=== PATIENT | female | born 1985 | race Caucasian/White ===

== ENCOUNTER 2021-05-12 11:26 | Emergency (ER) | payer OTHER, SELFPAY ==
[2021-05-12 11:34] VITALS: BP 172/89; PULSE 94; RESP 16; TEMP 36.1; O2SAT 100
--- NOTE | 2021-05-12 11:56 | ED.URI ---
HPI - URI/Sore Throat General Chief Complaint: Upper Respiratory Infection Stated Complaint: sinus issues Time Seen by Provider: 05/12/21 11:47 Source: patient and RN notes reviewed Mode of arrival: ambulatory Limitations: no limitations History of Present Illness HPI Narrative: Patient presents today with a 3-day history of congestion, rhinorrhea, left ear pain. She does report a 1 month history of increased allergy symptoms to include cough with mild shortness of breath. Denies fever. History of asthma for which she has been using her DuoNeb treatments with some relief. She has also recently been using Benadryl, sinus medication, and Mucinex with some relief as well. MD elicited complaint: cough, rhinorrhea and nasal congestion Related Data Home Medications Medication Instructions Recorded Confirmed buspirone mg 09/04/19 01/09/21 citalopram mg 09/04/19 01/09/21 prazosin 09/04/19 01/09/21 famotidine 40 mg tablet 40 mg PO DAILY 01/07/20 01/09/21 Allergies Allergy/AdvReac Type Severity Reaction Status Date / Time latex Allergy Mild Unknown Verified 01/09/21 14:12 Penicillins Allergy Mild Unknown Verified 01/09/21 14:12 egg Allergy Unknown Unknown Verified 01/09/21 14:12 peanut Allergy Unknown Unknown Verified 01/09/21 14:12 tetanus immune globulin Allergy Unknown Unknown Verified 01/09/21 14:12 tuberculin, purified protein Allergy Unknown Unknown Verified 01/09/21 14:12 deriva WALNUTS Allergy Unknown Unknown Uncoded 01/09/21 14:12 Review of Systems Review of Systems: CONSTITUTIONAL: Denies body aches, fever, chills, or sweats. EYES: Denies visual changes, redness, or discharge. ENT: Denies sore throat, or otalgia.+ Rhinorrhea, left ear pain, nasal congestion CARDIOVASCULAR: Denies chest pain, palpitations, or edema. RESPIRATORY: + Cough, shortness of breath GASTROINTESTINAL: Denies abdominal pain, nausea, vomiting, or diarrhea. GENITOURINARY: Denies dysuria or hematuria. SKIN: Denies rash, itching, or wounds. MUSCULOSKELETAL: Denies back pain, joint pain, or myalgia. NEUROLOGIC: Denies headache, numbness, tingling, or weakness. PSYCH: Denies depression or anxiety. PMFSH Past Medical History Medical History Asthma Family History Family History Father Asthma Family history of lung cancer Mother Asthma Sibling Asthma Social History Social History Smoking status: Former smoker Smoking end date: 09/08/07 Alcohol intake: current Comments At time of signature, I have reviewed and agree with nursing past medical, surgical, social and family history unless otherwise noted. Please see nursing chart for further information. There is no relevant family history pertinent to the presenting complaint Exam Narrative: GENERAL: Well-appearing, well-nourished, and in no acute distress. HEAD: Normocephalic, atraumatic. EYES: EOMI. No redness or drainage. Conjunctivae normal. ENT: Mucous membranes pink and moist. Nares mildly congested. No rhinorrhea. TMs normal bilaterally. Throat normal. Uvula midline. NECK: Normal AROM. Supple. No lymphadenopathy. CHEST: No respiratory distress. Clear to auscultation. HEART: Regular rate and rhythm. No murmur appreciated. Normal peripheral pulses. EXTREMITIES: Normal range of motion. No edema. SKIN: Warm, dry, no rash. Capillary refill normal. Normal skin turgor. NEURO: No focal deficits. Alert and oriented x3. Gait steady. PSYCH: Normal affect. No signs of depression or anxiety. Course Vital Signs Vital signs: Vital Signs Temperature 96.9 F L 05/12/21 11:34 Pulse Rate 94 05/12/21 11:34 Respiratory Rate 16 05/12/21 11:34 Blood Pressure 172/89 H 05/12/21 11:34 Pulse Oximetry 100 05/12/21 11:34 Temperature 96.9 F L 05/12/21 11:34 Pulse Rate 94
== END 2021-05-12 12:06 | disposition home or self-care (01) ==
PROVIDERS: Emergency Provider Nurse Practitioner
DX: J30.2 Other seasonal allergic rhinitis (principal); J45.901 Unspecified asthma with (acute) exacerbation; Z87.891 Personal history of nicotine dependence
CPT/HCPCS: 99213; G0463

== ENCOUNTER 2022-01-23 15:19 | Emergency (ER) | payer OTHER, SELFPAY ==
--- NOTE | 2022-01-23 15:22 | ED.URI ---
HPI - URI/Sore Throat General Chief Complaint: Upper Respiratory Infection Stated Complaint: sinus congestion/ear Time Seen by Provider: 01/23/22 15:22 Source: patient and RN notes reviewed History of Present Illness HPI Narrative: Patient is a 36-year-old female who presents the urgent care with complaints of sinus congestion, ear pain, drainage, nasal congestion and cough. Patient states that started 2 days ago and she believes it started out due to her allergies. Patient states she has been using her nebulizer and inhalers as needed and is concerned about it going to her chest . Patient denies of any history of pneumonia. States that she has been taking allergy medications and NyQuil. Denies of any fever, nausea, vomiting or ill contacts. Denies of any known exposure to COVID. No other acute complaints. No acute distress noted. Patient aware of the plan of care. Some parts of this dictation were generated by voice recognition software and may contain typographical and/or grammatical inaccuracies. Related Data Home Medications Medication Instructions Recorded Confirmed buspirone mg 09/04/19 06/11/21 citalopram mg 09/04/19 06/11/21 prazosin 09/04/19 06/11/21 famotidine 40 mg tablet 40 mg PO DAILY 01/07/20 06/11/21 Allergies Allergy/AdvReac Type Severity Reaction Status Date / Time latex Allergy Mild Unknown Verified 06/11/21 13:07 Penicillins Allergy Mild Unknown Verified 06/11/21 13:07 egg Allergy Unknown Unknown Verified 06/11/21 13:07 peanut Allergy Unknown Unknown Verified 06/11/21 13:07 tetanus immune globulin Allergy Unknown Unknown Verified 06/11/21 13:07 tuberculin, purified protein Allergy Unknown Unknown Verified 06/11/21 13:07 deriva WALNUTS Allergy Unknown Unknown Uncoded 01/09/21 14:12 Review of Systems Review of Systems: CONSTITUTIONAL: Denies fever, chills, or sweats. EYES: Denies visual changes, redness, or discharge. ENT: Reports of sinus congestion, postnasal drainage, sore throat, right otalgia and rhinorrhea CARDIOVASCULAR: Denies chest pain, palpitations, or edema. RESPIRATORY: Reports of cough with intermittent wheezing GASTROINTESTINAL: Denies abdominal pain, nausea, vomiting, or diarrhea. GENITOURINARY: Denies dysuria or hematuria. SKIN: Denies rash or itching. MUSCULOSKELETAL: Denies back pain, joint pain, or myalgia. NEUROLOGIC: Denies headache, numbness, or weakness. All other systems reviewed are negative, except as documented in HPI. [facility] Past Medical History Medical History Asthma Family History Family History Father Asthma Family history of lung cancer Mother Asthma Sibling Asthma Social History Social History Smoking status: Former smoker Smoking end date: 09/08/07 Alcohol intake: current Comments At the time of my signature, I reviewed and agree with the nursing past medical, surgical, social, and family history. There is no relevant family history pertinent to the patient complaint. Exam Narrative: GENERAL: This is a well-nourished, well-developed patient, in no apparent distress. HEAD: normocephalic, atraumatic. EYES: PERRL. Sclera clear/white. Vision is grossly intact. EARS: External ears normal, auditory canals clear and without drainage, erythema bulging right TM. Small effusion to left TM TMs normal without perforation. Hearing grossly intact. NOSE: External nose normal with no obvious nasal discharge, nares without redness, no rhinorrhea. THROAT: Mucous membranes moist, moderate postnasal drainage NECK: Neck supple CARDIOVASCULAR: Regular rate and rhythm without murmurs, gallops, or rubs. RESPIRATORY: Persistent cough noted on exam. Clear to auscultation. Breath sounds equal bilaterally. No wheezes, rales, or rhonchi. SKIN: warm, intact with no suspicious lesions or rash, good vernell
[2022-01-23 15:25] VITALS: BP 156/85; PULSE 87; RESP 16; TEMP 36.3; O2SAT 100
== END 2022-01-23 15:49 | disposition home or self-care (01) ==
PROVIDERS: Emergency Provider Nurse Practitioner Family
DX: H66.91 Otitis media, unspecified, right ear (principal); J32.9 Chronic sinusitis, unspecified; J45.909 Unspecified asthma, uncomplicated; Z87.891 Personal history of nicotine dependence
CPT/HCPCS: 99213; G0463

== ENCOUNTER 2023-04-04 18:23 | Emergency (ER) | payer OTHER, SELFPAY ==
[2023-04-04 18:31] VITALS: BP 143/85; PULSE 87; RESP 16; TEMP 37.5; O2SAT 98
--- NOTE | 2023-04-04 19:02 | ED.URI ---
HPI - URI/Sore Throat General Chief Complaint: Upper Respiratory Infection Stated Complaint: Sore Throat/Back Pain Time Seen by Provider: 04/04/23 19:02 Source: patient Mode of arrival: ambulatory Limitations: no limitations History of Present Illness HPI Narrative: 37-year-old female presents with complaint of nasal congestion, postnasal drainage, sore throat, sinus pressure for 3 days. Patient reports history of seasonal allergies. Takes daily antihistamines. Reports prior to coming to urgent care she was getting up off her bed and pulled muscle to her right lower back. Ambulatory with steady gait. States she took ibuprofen prior to arrival with no relief of pain. Denies radiation of pain, no weakness numbness or tingling to lower extremities. No loss of bowel or bladder. All systems reviewed and negative except as noted above. Related Data Home Medications Medication Instructions Recorded Confirmed buspirone 15 mg tablet mg 09/04/19 10/04/22 citalopram 40 mg tablet mg 09/04/19 10/04/22 prazosin 1 mg capsule 09/04/19 10/04/22 fluticasone 500 mcg-salmeterol 50 inhalation 04/04/23 mcg/dose blistr powdr for inhalation (Wixela Inhub) hydroxyzine HCl 25 mg tablet mg 04/04/23 omeprazole 40 mg capsule,delayed mg 04/04/23 release rizatriptan 5 mg tablet mg 04/04/23 verapamil 180 mg tablet,extended mg PO 04/04/23 release Allergies Allergy/AdvReac Type Severity Reaction Status Date / Time latex Allergy Mild Unknown Verified 04/04/23 18:58 Penicillins Allergy Mild Unknown Verified 04/04/23 18:58 egg Allergy Unknown Unknown Verified 04/04/23 18:58 peanut Allergy Unknown Unknown Verified 04/04/23 18:58 tetanus immune globulin Allergy Unknown Unknown Verified 04/04/23 18:58 tuberculin, purified protein Allergy Unknown Unknown Verified 04/04/23 18:58 deriva WALNUTS Allergy Unknown Unknown Uncoded 04/04/23 18:58 Review of Systems Review of Systems: CONSTITUTIONAL: Denies fever, chills, or sweats. EYES: Denies visual changes, redness, or discharge. ENT: Reports rhinorrhea, congestion, sore throat, sinus pressure. Denies otalgia. CARDIOVASCULAR: Denies chest pain, palpitations, or edema. RESPIRATORY: Denies cough or dyspnea. GASTROINTESTINAL: Denies abdominal pain, nausea, vomiting, or diarrhea. GENITOURINARY: Denies dysuria or hematuria. SKIN: Denies rash or itching. MUSCULOSKELETAL: reports right lower back pain. Denies joint pain, or myalgia. NEUROLOGIC: Denies headache, numbness, or weakness. PSYCHIATRIC: Denies anxiety or depression. All other systems reviewed are negative, except as documented in HPI. PMFSH Past Medical History Medical History Asthma Family History Family History Father Asthma Family history of lung cancer Mother Asthma Sibling Asthma Social History Social History Smoking status: Former smoker Smoking end date: 09/08/07 Alcohol intake: current Comments At time of signature, agree with nursing past medical, surgical, social and family history. There is no relevant family history pertinent to the presenting complaint. Exam Narrative: GENERAL: This is a well-nourished, well-developed patient, in no apparent distress. HEAD: normocephalic, atraumatic. EYES: PERRL. Sclera clear/white. Vision is grossly intact. EARS: External ears normal, auditory canals clear and without drainage, TMs normal without perforation. Hearing grossly intact. NOSE: External nose normal with clear nasal drainage. No erythema or swelling to nares. THROAT: Mucous membranes moist, Postnasal drainage without erythema or swelling. No exudates. NECK: Neck supple, non-tender without lymphadenopathy, masses or thyromegaly. CARDIOVASCULAR: Regular rate and rhythm without murmurs, gallops, or rubs. RESPIRATORY: Cl
== END 2023-04-04 19:32 | disposition home or self-care (01) ==
PROVIDERS: Emergency Provider Nurse Practitioner Family
DX: J01.90 Acute sinusitis, unspecified (principal); S39.012A Strain of muscle, fascia and tendon of lower back, initial encounter; X58.XXXA Exposure to other specified factors, initial encounter; J45.909 Unspecified asthma, uncomplicated
CPT/HCPCS: 87081; 87880; 99213; G0463

== ENCOUNTER 2024-03-05 16:22 | Emergency (ER) | payer OTHER, SELFPAY ==
[2024-03-05 16:40] VITALS: BP 132/80; PULSE 82; RESP 18; TEMP 36.3; O2SAT 99
--- NOTE | 2024-03-05 17:17 | ED.URI ---
HPI - URI/Sore Throat General Chief Complaint: Upper Respiratory Infection Stated Complaint: cough, chest irritation Time Seen by Provider: 03/05/24 16:55 Source: patient Mode of arrival: ambulatory Limitations: no limitations History of Present Illness HPI Narrative: 38-year-old female presents with complaint of cough, chest congestion, fatigue, nasal congestion. Patient reports history of asthma. Reports she has neb machine at home. Has not had to use it. Patient thinks she got sick from her son who had similar symptoms. Afebrile. Taking [id number] cough medicine with Mucinex. All systems reviewed and negative except as noted above. Related Data Home Medications Medication Instructions Recorded Confirmed citalopram 40 mg tablet 40 mg PO DAILY 09/04/19 03/05/24 omeprazole 40 mg capsule,delayed 40 mg PO DAILY 04/04/23 03/05/24 release rizatriptan 5 mg tablet 5 mg PO DAILY 04/04/23 03/05/24 verapamil 180 mg tablet,extended 180 mg PO DAILY 04/04/23 03/05/24 release buspirone 15 mg tablet 30 mg PO BID 06/06/23 03/05/24 cetirizine 10 mg tablet 10 mg PO DAILY 06/06/23 03/05/24 prazosin 1 mg capsule 2 mg PO DAILY 06/06/23 03/05/24 gabapentin 100 mg capsule 300 mg PO DAILY 02/10/24 03/05/24 Allergies Allergy/AdvReac Type Severity Reaction Status Date / Time Penicillins Allergy Intermediate Hives Verified 03/05/24 16:59 latex Allergy Mild Unknown Verified 03/05/24 16:59 egg Allergy Unknown Unknown Verified 03/05/24 16:59 eggplant Allergy Unknown Dyspnea / Verified 03/05/24 16:59 SOB peanut Allergy Unknown Unknown Verified 03/05/24 16:59 tetanus immune globulin Allergy Unknown Unknown Verified 03/05/24 16:59 tomato Allergy Unknown Hives Verified 03/05/24 16:59 tuberculin, purified protein Allergy Unknown Unknown Verified 03/05/24 16:59 deriva kiwi Allergy Severe Prickly Uncoded 03/05/24 16:32 tongue WALNUTS Allergy Unknown Unknown Uncoded 03/05/24 16:32 Review of Systems Review of Systems: CONSTITUTIONAL: Denies fever, chills, or sweats. EYES: Denies visual changes, redness, or discharge. ENT: Reports rhinorrhea, congestion. Denies sore throat, or otalgia. CARDIOVASCULAR: Denies chest pain, palpitations, or edema. RESPIRATORY: reports cough and dyspnea with exertion. GASTROINTESTINAL: Denies abdominal pain, nausea, vomiting, or diarrhea. GENITOURINARY: Denies dysuria or hematuria. SKIN: Denies rash or itching. MUSCULOSKELETAL: Denies back pain, joint pain, or myalgia. NEUROLOGIC: Denies headache, numbness, or weakness. PSYCHIATRIC: Denies anxiety or depression. All other systems reviewed are negative, except as documented in HPI. [facility] Past Medical History Medical History (Updated 03/05/24 @ 17:06 by Sarahi Abbott NP) Asthma Family History Family History Father Asthma Family history of lung cancer Mother Asthma Sibling Asthma Social History Social History Smoking status: Former smoker Smoking end date: 09/08/07 Alcohol intake: current Comments At time of signature, agree with nursing past medical, surgical, social and family history. There is no relevant family history pertinent to the presenting complaint. Exam Narrative: GENERAL: This is a well-nourished, well-developed patient, in no apparent distress. HEAD: normocephalic, atraumatic. EYES: PERRL. Sclera clear/white. Vision is grossly intact. EARS: External ears normal, auditory canals clear and without drainage, TMs normal without perforation. Hearing grossly intact. NOSE: External nose normal with no obvious nasal discharge, nares without redness, no rhinorrhea. THROAT: Mucous membranes moist, posterior pharynx clear. NECK: Neck supple, non-tender without lymphadenopathy, masses or thyromegaly. CARDIOVASCULAR: Regular rate and rhythm without murmurs, gallops, or rubs. RESPI
== END 2024-03-05 17:08 | disposition home or self-care (01) ==
PROVIDERS: Emergency Provider Nurse Practitioner Family
DX: J06.9 Acute upper respiratory infection, unspecified (principal); J45.901 Unspecified asthma with (acute) exacerbation; Z87.891 Personal history of nicotine dependence
CPT/HCPCS: 99213; G0463

== ENCOUNTER 2024-03-27 17:40 | Emergency (ER) | payer OTHER, SELFPAY ==
--- NOTE | ~2024-03-27 | XR_ITS ---
EXAMINATION: XR chest 2V DATE: 03/27/2024 18:02 INDICATION: Productive cough. Asthma. TECHNIQUE: frontal and lateral views of the chest were obtained. COMPARISON: Chest radiograph dated 07/21/2014 FINDINGS: The lungs are clear with no focal airspace opacities, pulmonary edema, pleural effusion or pneumothor ax. The cardiomediastinal silhouette is normal. Mild thoracic kyphosis with moderate spondylosis and chronic mild anterior wedging of a few mid thoracic vertebral bodies. IMPRESSION: 1. No acute cardiopulmonary disease. Reviewed, dictated and finalized at location A.
--- NOTE | 2024-03-27 17:43 | ED.URI ---
HPI - URI/Sore Throat General Chief Complaint: Upper Respiratory Infection Stated Complaint: Sinus Time Seen by Provider: 03/27/24 17:50 Source: patient, RN notes reviewed and old records reviewed Mode of arrival: ambulatory Limitations: no limitations History of Present Illness HPI Narrative: 38-year-old female with a history of asthma, chronic sinusitis presents to the [facility] with complaints of a cough, worse at night. Patient was seen on March 05, prescribed steroids pills and antibiotics states that she never completely. 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 Denies any significant shortness of breath. Reports that she did use her nebulizer treatment about an hour prior to arrival. Denies any fevers. Reports a runny nose intermittently. Reports she feels like it is a productive cough but does not no colored is, so reports that she swallow the phlegm Related Data Home Medications Medication Instructions Recorded Confirmed citalopram 40 mg tablet 40 mg PO DAILY 09/04/19 03/27/24 omeprazole 40 mg capsule,delayed 40 mg PO DAILY 04/04/23 03/27/24 release rizatriptan 5 mg tablet 5 mg PO DAILY 04/04/23 03/27/24 verapamil 180 mg tablet,extended 180 mg PO DAILY 04/04/23 03/27/24 release buspirone 15 mg tablet 30 mg PO BID 06/06/23 03/27/24 cetirizine 10 mg tablet 10 mg PO DAILY 06/06/23 03/27/24 prazosin 1 mg capsule 2 mg PO DAILY 06/06/23 03/27/24 gabapentin 100 mg capsule 300 mg PO DAILY 02/10/24 03/27/24 Allergies Allergy/AdvReac Type Severity Reaction Status Date / Time eggplant Allergy Severe Dyspnea / Verified 03/27/24 17:48 SOB Penicillins Allergy Intermediate Hives Verified 03/27/24 17:48 tomato Allergy Intermediate Hives Verified 03/27/24 17:48 latex Allergy Mild Unknown Verified 03/27/24 17:48 egg Allergy Unknown Unknown Verified 03/27/24 17:48 peanut Allergy Unknown Unknown Verified 03/27/24 17:48 tetanus immune globulin Allergy Unknown Unknown Verified 03/27/24 17:48 tuberculin, purified protein Allergy Unknown Unknown Verified 03/27/24 17:48 deriva kiwi Allergy Severe Prickly Uncoded 03/27/24 17:48 tongue WALNUTS Allergy Unknown Unknown Uncoded 03/27/24 17:48 Review of Systems Review of Systems: All systems reviewed & are unremarkable except as noted in HPI and below Constitutional: Constitutional: Reports no additional constitutional complaints Eyes: Eyes: Reports no additional eye complaints ENT: Reports system reviewed and no additional complaints, except as documented Cardiovascular: Cardiovascular: Reports no additional cardiovascular complaints, Denies chest pain and Denies dyspnea Respiratory: Respiratory: Reports as per HPI, Denies chest congestion, Reports cough and Denies dyspnea Gastrointestinal: Gastrointestinal: Reports no additional gastrointestinal complaints, Denies abdominal pain, Denies nausea and Denies vomiting Musculoskeletal: Musculoskeletal: Reports no additional musculoskeletal complaints Integumentary/Breasts: Skin/Breast: Reports system reviewed and no additional complaints, except as docu Neurologic: Reports system reviewed and no additional complaints, except as documented Psychiatric: Psychiatric: Reports no additional psychiatric complaints Allergic/Immunologic: Allergic/Immunologic: Reports no additional allergic/immunologic complaints PMFSH Past Medical History Medical History Asthma Family History Family History Father Asthma Family history of lung cancer Mother Asthma Sibling Asthma Social History Social History Smoking status: Former smoker Smoking end date: 09/08/07 Alcohol intake: current Comments At the time of my signature, I reviewed and agree with the nursing past medical, surgical, social, and family history. There is no relevant family histo
[2024-03-27 17:48] VITALS: BP 153/89; PULSE 91; RESP 20; TEMP 36.8; O2SAT 98
[2024-03-27 17:50] VITALS: BP 153/89; PULSE 91; RESP 20; TEMP 36.8; O2SAT 98
== END 2024-03-27 18:48 | disposition home or self-care (01) ==
PROVIDERS: Emergency Provider Nurse Practitioner
DX: R05.9 Cough, unspecified (principal); J45.909 Unspecified asthma, uncomplicated; Z87.891 Personal history of nicotine dependence
CPT/HCPCS: 71046; 99213; G0463

== ENCOUNTER 2024-09-16 12:56 | Emergency (ER) | payer OTHER, SELFPAY ==
[2024-09-16 13:00] VITALS: BP 150/85; PULSE 90; RESP 20; TEMP 36.7; O2SAT 100
--- NOTE | 2024-09-16 13:26 | ED.URI ---
HPI - URI/Sore Throat General Chief Complaint: Upper Respiratory Infection Stated Complaint: Bodyaches/Sinus Time Seen by Provider: 09/16/24 13:26 Source: patient, RN notes reviewed and old records reviewed Mode of arrival: ambulatory Limitations: no limitations History of Present Illness HPI Narrative: 39-year-old female presents to the [facility] with a 2 week history of sinus drainage, sinus congestion, 1 week ago started with a cough and wheezing. Has been using albuterol. States that she has also taken NyQuil and Mucinex. Onset (ago): week(s) (2) Treatments prior to arrival: cold medicine and other (Albuterol) Related Data Home Medications ?Medication ?Instructions ?Recorded ?Confirmed ?Last Taken ?Type citalopram 40 mg tablet 40 mg PO DAILY 09/04/19 03/27/24 Unknown History omeprazole 40 mg capsule,delayed 40 mg PO DAILY 04/04/23 03/27/24 Unknown History release rizatriptan 5 mg tablet 5 mg PO DAILY 04/04/23 03/27/24 Unknown History verapamil 180 mg tablet,extended 180 mg PO DAILY 04/04/23 03/27/24 Unknown History release buspirone 15 mg tablet 30 mg PO BID 06/06/23 03/27/24 Unknown History cetirizine 10 mg tablet 10 mg PO DAILY 06/06/23 03/27/24 Unknown History prazosin 1 mg capsule 2 mg PO DAILY 06/06/23 03/27/24 Unknown History gabapentin 100 mg capsule 300 mg PO DAILY 02/10/24 09/16/24 Unknown History gabapentin 300 mg capsule mg 09/16/24 Unknown History hydroxyzine HCl 25 mg tablet mg 09/16/24 Unknown History Allergies Allergy/AdvReac Type Severity Reaction Status Date / Time eggplant Allergy Severe Dyspnea / Verified 09/16/24 12:59 SOB Penicillins Allergy Intermediate Hives Verified 09/16/24 12:59 tomato Allergy Intermediate Hives Verified 09/16/24 12:59 latex Allergy Mild Unknown Verified 09/16/24 12:59 egg Allergy Unknown Unknown Verified 09/16/24 12:59 peanut Allergy Unknown Unknown Verified 09/16/24 12:59 tetanus immune globulin Allergy Unknown Unknown Verified 09/16/24 12:59 tuberculin, purified protein Allergy Unknown Unknown Verified 09/16/24 12:59 deriva kiwi Allergy Severe Prickly Uncoded 09/16/24 12:59 tongue WALNUTS Allergy Unknown Unknown Uncoded 09/16/24 12:59 Review of Systems Review of Systems: All systems reviewed & are unremarkable except as noted in HPI and below Constitutional: Constitutional: Reports as per HPI and Reports body ache(s) ENT: Reports as per HPI, Reports nasal congestion, Reports nasal discharge and Reports sinus pressure Cardiovascular: Cardiovascular: Reports no additional cardiovascular complaints, Denies chest pain and Denies dyspnea Respiratory: Respiratory: Reports as per HPI, Denies chest congestion, Reports cough, Denies dyspnea and Reports wheezing Musculoskeletal: Musculoskeletal: Reports no additional musculoskeletal complaints Integumentary/Breasts: Skin/Breast: Reports system reviewed and no additional complaints, except as docu PMFSH Past Medical History Medical History Asthma Family History Family History Father Asthma Family history of lung cancer Mother Asthma Sibling Asthma Social History Social History Smoking status: Former smoker Smoking end date: 09/08/07 Alcohol intake: current Comments At the time of my signature, I reviewed and agree with the nursing past medical, surgical, social, and family history. There is no relevant family history pertinent to the patient complaint. Exam Const: General: cooperative, healthy appearing, comfortable, no acute distress, well developed, alert and well nourished Nutritional Appearance: well nourished and obese morbidly obese Orientation/consciousness: patient oriented x3 Limitations: no limitations HENMT: Head: normal to inspection Ears: hearing grossly normal bilaterally, external ears normal, TM's normal bilaterally, EAC's normal, mastoids normal and no periauricular adenopathy Face/Nose/Sinus: Normal external nose present, Normal nares present and Nasal discharge present clear bilateral Face and sinus: normal facial exam Mouth: Yes Normal oral and palatal mucosa present, Yes lip normal, Yes tongue normal and Yes moist mucous membranes Throat: posterior oropharynx normal, uvula midline, postnasal drainage and uvular edema Eyes: General: appearance normal, both eyes and all related structures Alignment and Position: alignment normal Neck: Neck: normal visual inspection, full ROM, no lymphadenopathy and no meningeal signs Chest: Chest palpation & inspection: normal inspection of the chest Resp: Effort & Inspection: normal respiratory effort and able to speak in complete sentences Auscultation: no crackles, no rales, no rhonchi and wheezes expiratory wheezes and scattered wheezes Cardio: Rate: regular rate Skin: General skin exam: normal color and no rashes or lesions noted Neuro: General: patient oriented x3, gait normal, moves all extremities and no meningeal signs Cognition (Neuro): normal cognition Speech: normal speech Gait exam (Neuro): Normal gait present Extrem: General: normal to inspection, full ROM, capillary refill normal and normal gait Psych: Appearance: grossly normal and well kempt Mental Status: mental status grossly normal Speech and movement: Normal speech and movement present and Clear speech present Affect: normal affect Attitude: cooperative Course Course Level of Care: Express Care Visit Vital Signs Vital signs: Vital Signs Temperature 98.0 F 09/16/24 13:00 Pulse Rate 90 09/16/24 13:00 Respiratory Rate 20 09/16/24 13:00 Blood Pressure 150/85 H 09/16/24 13:00 Pulse Oximetry 100 09/16/24 13:00 Oxygen Delivery Room Air 09/16/24 13:00 Temperature 98.0 F 09/16/24 13:00 Pulse Rate 90 09/16/24 13:00 Respiratory Rate 20 09/16/24 13:00 Blood Pressure 150/85 H 09/16/24 13:00 Pulse Oximetry 100 09/16/24 13:00 Oxygen Delivery Room Air 09/16/24 13:00 Reviewed MDM - URI/Sore Throat MDM Narrative Medical decision making narrative: Patient sitting comfortably in exam. Nontoxic, vitals stable. Patient with 2 weeks of URI symptoms, worse 1 week ago. Patient is appropriate for outpatient treatment due to length of symptoms with doxycycline and prednisone. States that she does have enough nebulizer medication at home. Discharge instructions reviewed with patient, as well as provided in writing per nursing staff. The instructions also include specific and strict return/GO TO THE ER as well as f/u information. All questions have been answered, and the patient deny any further questions with discharge and discharge plan. Some parts of this dictation were generated by voice recognition software and may contain typographical and/or grammatical inaccuracies. Differential Diagnosis Differential diagnosis: Likely upper respiratory infection, otitis media, sinusitis, viral infection, bronchitis, influenza and pharyngitis Critical Care Time Critical Care Time Critical Care Time: No Discharge Plan Discharge Clinical Impression: Bronchitis, Asthma exacerbation Sinusitis Qualifiers: Sinusitis location: frontal Chronicity: acute Recurrence: not specified as recurrent Qualified Code(s): J01.10 - Acute frontal sinusitis, unspecified Patient Disposition: Home, Self-Care Condition: Stable Instructions: Sinusitis (ED), Acute Bronchitis (ED) Additional Instructions: Use your albuterol nebulizer every 4 hours. Take medications as prescribed Follow-up with primary care provider this week. Today your blood pressure was 150/85 it is recommended you follow-up to have this rechecked. If your symptoms get worse, breathing does not improve or gets worse please go directly to the nearest emergency room for further evaluation, testing and treatment Patient Language: Ghanaian Prescriptions: New prednisone 20 mg tablet See Rx Instructions .Route .COMPLEX Qty: 9 0RF Rx Instructions: Take 40 mg daily for 3 days, 20 mg daily for 3 days doxycycline monohydrate 100 mg tablet 100 mg PO BID Qty: 14 0RF No Action citalopram 40 mg tablet 40 mg PO DAILY buspirone 15 mg tablet 30 mg PO BID prazosin 1 mg capsule 2 mg PO DAILY verapamil 180 mg tablet extended release 180 mg PO DAILY omeprazole 40 mg capsule,delayed release(DR/EC) 40 mg PO DAILY rizatriptan 5 mg tablet 5 mg PO DAILY gabapentin 300 mg capsule hydroxyzine HCl 25 mg tablet cetirizine 10 mg tablet 10 mg PO DAILY gabapentin 100 mg capsule 300 mg PO DAILY topiramate 100 mg tablet See Rx Instructions .ROUTE .COMPLEX Qty: 60 0RF Dose Instruction: TAKE 1 TABLET BY MOUTH TWICE DAILY Rx Instructions: TAKE 1 TABLET BY MOUTH TWICE DAILY azelastine 137 mcg (0.1 %) aerosol,spray 1 spray intranasal Q12H Qty: 30 5RF Rx Instructions: administer into each nostril montelukast 10 mg tablet See Rx Instructions .ROUTE .COMPLEX Qty: 30 11RF Dose Instruction: TAKE 1 TABLET BY MOUTH DAILY Rx Instructions: TAKE 1 TABLET BY MOUTH DAILY fluticasone propionate 50 mcg/actuation spray,suspension See Rx Instructions .ROUTE .COMPLEX Qty: 16 11RF Dose Instruction: USE 1 SPRAY NASALLY TWICE DAILY, ADMINISTER INTO EACH NOSTRIL Rx Instructions: USE 1 SPRAY NASALLY TWICE DAILY, ADMINISTER INTO EACH NOSTRIL ipratropium-albuterol 0.5 mg-3 mg(2.5 mg base)/3 mL solution for nebulization See Rx Instructions .ROUTE .COMPLEX Qty: 1080 2RF Dose Instruction: USE 1 VIAL VIA NEBULIZER EVERY 6 HOURS NEEDED SHORTNESS OF BREATH OR WHEEZING Rx Instructions: USE 1 VIAL VIA NEBULIZER EVERY 6 HOURS NEEDED SHORTNESS OF BREATH OR WHEEZING fluticasone propion-salmeterol [Wixela Inhub] 500-50 mcg/dose blister with device 1 inh INHALATION BID Qty: 60 5RF Rx Instructions: Rinse and spit albuterol sulfate 90 mcg/actuation HFA aerosol inhaler See Rx Instructions .ROUTE .COMPLEX Qty: 8.5 5RF Dose Instruction: INHALE 1 TO 2 PUFFS BY MOUTH EVERY 4 TO 6 HOURS NEEDED FOR SHORTNESS OF BREATH OR WHEEZING Rx Instructions: INHALE 1 TO 2 PUFFS BY MOUTH EVERY 4 TO 6 HOURS NEEDED FOR SHORTNESS OF BREATH OR WHEEZING Follow-up/Referrals: PHYSICIAN,WOODS MANAGER [Primary Care Provider] - Stand Alone Forms: Work/School Release IP Time of Disposition: 13:43
== END 2024-09-16 13:50 | disposition home or self-care (01) ==
PROVIDERS: Emergency Provider Nurse Practitioner
DX: J45.901 Unspecified asthma with (acute) exacerbation (principal); J01.10 Acute frontal sinusitis, unspecified; Z87.891 Personal history of nicotine dependence
CPT/HCPCS: 99213; G0463

== ENCOUNTER 2025-07-09 15:13 | Emergency (ER) | payer OTHER, SELFPAY ==
[2025-07-09 15:25] VITALS: BP 142/95; PULSE 85; RESP 16; TEMP 36.3; O2SAT 98
--- NOTE | 2025-07-09 15:28 | ED.ANIMALBIT ---
HPI - Animal Bite General Chief Complaint: Wound/Laceration Stated Complaint: cat bite Time Seen by Provider: 07/09/25 15:28 Source: patient and RN notes reviewed Mode of arrival: ambulatory Limitations: no limitations History of Present Illness HPI narrative: 40-year-old female presents Express Care complaining CT bite to right hand approximately 3 days ago. Patient said her ex-'s CT better 3 days ago when she was eating chicken, and the CT small the check-in in bed her right hand. Patient reports puncture wounds to the lateral dorsal hand. Patient says cats rabies are up-to-date. Patient says her tetanus is up-to-date. She reports redness, swelling, pain throughout her right hand, she says some pain shoots up into her arm especially when she gets blood pressures taken in her right arm. Patient denies any fevers advice, chills, nausea, vomiting, or any other symptoms. Patient has been using Dial soap and peroxide to help with symptoms. Related Data Home Medications ?Medication ?Instructions ?Recorded ?Confirmed ?Last Taken ?Type citalopram 40 mg tablet 40 mg PO DAILY 09/04/19 05/25/25 Unknown History rizatriptan 5 mg tablet 5 mg PO DAILY 04/04/23 05/25/25 Unknown History verapamil 180 mg tablet,extended 180 mg PO DAILY 04/04/23 05/25/25 Unknown History release buspirone 15 mg tablet 30 mg PO BID 06/06/23 05/25/25 Unknown History cetirizine 10 mg tablet 10 mg PO DAILY 06/06/23 05/25/25 Unknown History prazosin 1 mg capsule 2 mg PO DAILY 06/06/23 05/25/25 Unknown History gabapentin 300 mg capsule mg 09/16/24 05/25/25 Unknown History hydroxyzine HCl 25 mg tablet mg 09/16/24 05/25/25 Unknown History Allergies Allergy/AdvReac Type Severity Reaction Status Date / Time eggplant Allergy Severe Dyspnea / Verified 07/09/25 15:22 SOB Penicillins Allergy Intermediate Hives Verified 07/09/25 15:22 tomato Allergy Intermediate Hives Verified 07/09/25 15:22 latex Allergy Mild Unknown Verified 07/09/25 15:22 egg Allergy Unknown Unknown Verified 07/09/25 15:22 peanut Allergy Unknown Unknown Verified 07/09/25 15:22 tetanus immune globulin Allergy Unknown Unknown Verified 07/09/25 15:22 tuberculin, purified protein Allergy Unknown Unknown Verified 07/09/25 15:22 deriva kiwi Allergy Severe Prickly Uncoded 09/16/24 12:59 tongue WALNUTS Allergy Unknown Unknown Uncoded 09/16/24 12:59 Review of Systems Review of Systems: CONSTITUTIONAL: Denies fever, chills, or sweats. EYES: Denies visual changes, redness, or discharge. ENT: Denies rhinorrhea, congestion, sore throat, or otalgia. CARDIOVASCULAR: Denies chest pain, palpitations, or edema. RESPIRATORY: Denies cough or dyspnea. GASTROINTESTINAL: Denies abdominal pain, nausea, vomiting, or diarrhea. GENITOURINARY: Denies dysuria or hematuria. SKIN: Denies rash or itching. Positive for wound, redness, swelling MUSCULOSKELETAL: Denies back pain, joint pain, or myalgia. NEUROLOGIC: Denies headache, numbness, or weakness. PSYCHIATRIC: Denies anxiety or depression. All other systems reviewed are negative, except as documented in HPI. [facility] Past Medical History Medical History Asthma Family History Family History Father Asthma Family history of lung cancer Mother Asthma Sibling Asthma Social History Social History Smoking status: Former smoker Smoking end date: 09/08/07 Alcohol intake: current Comments At the time of my signature, I reviewed and agree with the nursing past medical, surgical, social, and family history. There is no relevant family history pertinent to the patient complaint. Exam Narrative: GENERAL: This is a well-nourished, well-developed adult, in no apparent distress. They are non ill-appearing, nontoxic appearing. HEAD: normocephalic, atraumatic. EYES: Sclera clear/white. Conjunctiva normal. Vision is grossly intact. Extraocular movements intact EARS: External ears normal. Hearing grossly intact. NOSE: External nose normal THROAT: Mucous membranes moist, NECK: Neck supple, CARDIOVASCULAR: Regular rate and rhythm RESPIRATORY: Clear to auscultation. Breath sounds equal bilaterally. No wheezes, rales, or rhonchi. SKIN: Right hand: 2 small puncture wounds to the dorsal lateral right hand, with few scratches to the dorsal hand. Right hand is erythematous and tender to palpate. Mild swelling throughout the fingers. Capillary refill less than 2 seconds. Sensation intact. Patient able to wiggle her fingers. Strength 5/5. Patient may get thumbs-up, stop sign, okay sign, and thumbs-up sign. Neurovascular status intact distal to injury. Radial, median, ulnar nerve distribution intact. No exudate or drainage, no area of fluctuance, no induration. Right radial pulse 2 +and palpable. NEURO: awake, alert, and oriented to person, place and time. There were no obvious focal neurologic abnormalities. EXTREMITIES: No joint tenderness, effusion, or edema noted. Course Course Emergency Course: Portions of this record may have been created with voice recognition software Level of Care: Express Care Visit Vital Signs Vital signs: Vital Signs Temperature 97.3 F L 07/09/25 15:25 Pulse Rate 85 07/09/25 15:25 Respiratory Rate 16 07/09/25 15:25 Blood Pressure 142/95 H 07/09/25 15:25 Pulse Oximetry 98 07/09/25 15:25 Oxygen Delivery Room Air 07/09/25 15:25 Temperature 97.3 F L 07/09/25 15:25 Pulse Rate 85 07/09/25 15:25 Respiratory Rate 16 07/09/25 15:25 Blood Pressure 142/95 H 07/09/25 15:25 Pulse Oximetry 98 07/09/25 15:25 Oxygen Delivery Room Air 07/09/25 15:25 Reviewed MDM - Animal Bite MDM Narrative Medical decision making narrative: Likely patient has infected cat bite. Catheterization rabies up today, tetanus is up-to-date. Patient has no systemic symptoms, afebrile, nontoxic appearing, no apparent distress. Signs hemodynamically stable, no tachycardia. Patient has allergies to penicillins, will start her on Bactrim along with metronidazole. Advised patient to not drink alcohol while taking metronidazole. Strict ER precautions discussed with patient especially given its location. Advised patient to go to the ER if she develops worsening redness and swelling, pain, fevers, body aches chills, nausea, vomiting, not getting better in 2 days on antibiotics, or any serious concerns. Discussed physical exam findings. Advised supportive measures and signs/symptoms to go to the ER. Pt is appropriate for outpt treatment and f/u. Differential Diagnosis Differential diagnosis: Likely cat bite and other (Cellulitis, wound infection, Cat scratch) Critical Care Time Critical Care Time Critical Care Time: No Discharge Plan Discharge Clinical Impression: Cat bite of right hand with infection Qualifiers: Encounter type: initial encounter Qualified Code(s): S61.451A - Open bite of right hand, initial encounter Patient Disposition: Home Condition: Stable Instructions: Antibiotic Form, Animal Bite (ED) Additional Instructions: Take the antibiotics as directed. Do not drink alcohol taking metronidazole as it may cause severe nausea and vomiting. Finish the course completely even if you start to feel better. Wash the bites daily with mild soap and water. Do not soak or scrub the wound. Please keep the driving covered if it is draining with a non adherent dressing such as a Band-Aid otherwise you may leave it open to air. You may apply Vaseline or triple antibiotic ointment topically to the area twice a day. Avoid dirty water to the wound has healed completely. Do not use peroxide or alcohol in the wounds. Follow-up with PCP in 2-3 days. Please go to the ER if he develops worsening swelling, redness, hand is hot to touch, pain, fevers, body aches, chills, red streaking up the arm, nausea, vomiting, or symptoms on improving in 2-3 days on antibiotics. Patient Language: Estonian Prescriptions: New metronidazole 500 mg tablet 500 mg PO TID 7 Days Qty: 21 0RF sulfamethoxazole-trimethoprim [Bactrim DS] 800-160 mg tablet 1 tablet PO Q12H 7 Days Qty: 14 0RF No Action citalopram 40 mg tablet 40 mg PO DAILY buspirone 15 mg tablet 30 mg PO BID prazosin 1 mg capsule 2 mg PO DAILY verapamil 180 mg tablet extended release 180 mg PO DAILY rizatriptan 5 mg tablet 5 mg PO DAILY gabapentin 300 mg capsule hydroxyzine HCl 25 mg tablet cetirizine 10 mg tablet 10 mg PO DAILY Spiriva Respimat 1.25 mcg/actuation mist 2 puff inhalation Q24H Qty: 4 2RF fluticasone propion-salmeterol [Wixela Inhub] 500-50 mcg/dose blister with device 1 inh INHALATION BID Qty: 60 5RF Rx Instructions: Rinse and spit topiramate 100 mg tablet See Rx Instructions .ROUTE .COMPLEX Qty: 60 0RF Dose Instruction: TAKE 1 TABLET BY MOUTH TWICE DAILY Rx Instructions: TAKE 1 TABLET BY MOUTH TWICE DAILY azelastine 137 mcg (0.1 %) aerosol,spray 1 spray intranasal Q12H Qty: 30 5RF Rx Instructions: administer into each nostril ipratropium-albuterol 0.5 mg-3 mg(2.5 mg base)/3 mL solution for nebulization See Rx Instructions .ROUTE .COMPLEX Qty: 1080 2RF Dose Instruction: USE 1 VIAL VIA NEBULIZER EVERY 6 HOURS NEEDED SHORTNESS OF BREATH OR WHEEZING Rx Instructions: USE 1 VIAL VIA NEBULIZER EVERY 6 HOURS NEEDED SHORTNESS OF BREATH OR WHEEZING montelukast 10 mg tablet See Rx Instructions .ROUTE .COMPLEX Qty: 30 11RF Dose Instruction: TAKE 1 TABLET BY MOUTH DAILY Rx Instructions: TAKE 1 TABLET BY MOUTH DAILY albuterol sulfate 90 mcg/actuation HFA aerosol inhaler See Rx Instructions .ROUTE .COMPLEX Qty: 8.5 5RF Dose Instruction: INHALE 1 TO 2 PUFFS BY MOUTH EVERY 4 TO 6 HOURS NEEDED FOR SHORTNESS OF BREATH OR WHEEZING Rx Instructions: INHALE 1 TO 2 PUFFS BY MOUTH EVERY 4 TO 6 HOURS NEEDED FOR SHORTNESS OF BREATH OR WHEEZING fluticasone propionate 50 mcg/actuation spray,suspension See Rx Instructions .ROUTE .COMPLEX Qty: 16 11RF Dose Instruction: USE 1 SPRAY NASALLY TWICE DAILY, ADMINISTER INTO EACH NOSTRIL Rx Instructions: USE 1 SPRAY NASALLY TWICE DAILY, ADMINISTER INTO EACH NOSTRIL Follow-up/Referrals: PHYSICIAN,COMMUNITY HEALTH WORKER [Primary Care Provider, Internal Medicine] Time of Disposition: 15:42
== END 2025-07-09 15:50 | disposition home or self-care (01) ==
DX: S61.431A Puncture wound without foreign body of right hand, initial encounter (principal); L08.9 Local infection of the skin and subcutaneous tissue, unspecified; W55.01XA Bitten by cat, initial encounter; Z87.891 Personal history of nicotine dependence; J45.909 Unspecified asthma, uncomplicated
CPT/HCPCS: 99213; G0463